=== PATIENT | male | born 1985 | race American Indian/Alaskan Native ===

== ENCOUNTER 2020-04-28 15:23 | Emergency (ER) | payer OTHER ==
[2020-04-28 16:10] LABS: Absolute Lymphocytes (CBC) 2.3 K/uL (0.7-4.9); Basophils % 0.8 % (0-1.3); Hematocrit 46.4 % (39.6-49.0); RBC Red Blood Cell Count 5.39 M/uL (4.33-5.43)
[2020-04-28 16:23] LABS: Potassium 3.6 mmol/L (3.5-5.1)
[2020-04-28 16:50] LABS: Urine Bacteria <20 /HPF (NONE SEEN); Urine Culture Reflex Order NOT NEEDED; Urine RBC 20-50 /HPF (NONE SEEN)
--- NOTE | 2020-04-28 17:16 | RAD REPORT ---
EXAM DESCRIPTION: CT - Abdomen Pelvis W Contrast - 04/28/2020 4:38 pm CLINICAL HISTORY: ABD PAIN, right-side, hematuria COMPARISON: No comparisons TECHNIQUE: Biphasic, helical CT imaging of the abdomen and pelvis was performed following 100 ml non -ionic IV contrast. No oral contrast. All CT scans are performed using dose optimization technique as appropriate and may include automated exposure control or mA/KV adjustment according to patient size. FINDINGS: No suspicious findings in the lung bases. Liver shows borderline fatty infiltration pattern. No focal liver lesion identified. Spleen and pancr eas show no suspicious findings. Gallbladder is tightly contracted precluding assessment. No biliary tree dilatation. Mild right-sided hydronephrosis is present without an obstructing calculus present. No nonobstructing calculi. Right renal function is delayed relative to the left. No focal area of diminished enhanceme nt. No pyelonephritis or solid mass of the renal parenchyma. No left-sided obstructing or nonobstruct ing calculi. No left-sided hydronephrosis. Urinary bladder is mostly contracted which limits assessme nt. No bladder wall thickening or mass. No adrenal abnormalities. No dilated bowel loops or bowel wall thickening. Appendix is normal. No free air, free fluid or infla mmatory stranding. No mass or bulky lymphadenopathy. A very small incidental fat only umbilical chilango ia present. No suspicious bony findings. IMPRESSION: Mild right-sided hydronephrosis and delayed right renal function without an obstructing calculus identified. No pyelonephritis or focal mass lesion of the right kidney. Right-sided dilatation could be secondary to a recently passed stone. Blood, mass or inflammatory mohinder ris in the ureter could give this pattern as well. Urinary bladder is too contracted to allow assessment. No bladder calculi seen.
--- NOTE | 2020-04-28 17:21 | EDPHYS ---
Physician Documentation [facility] Name: Diego Woodward Age: 34 yrs Sex: Male : 1985 Arrival Date: 04/28/2020 Time: 15:28 Bed 15 Private MD: ED Physician Kyle Booker HPI: 04/28 16:41 This 34 yrs old Other Male presents to ER via Ambulatory with complaints of Urinary kb Problem. 16:41 The patient presents with urinary symptoms, hematuria. Onset: The symptoms/episode kb began/occurred 4 day(s) ago. Modifying factors: The symptoms are alleviated by nothing, the symptoms are aggravated by nothing. Associated signs and symptoms: Pertinent positives: abdominal pain, hematuria, Pertinent negatives: constipation, diarrhea, dysuria, fever, nausea, vomiting. Severity of symptoms: At their worst the symptoms were moderate, in the emergency department the symptoms have improved. The patient has not experienced similar symptoms in the past. The patient has not recently seen a physician. Pt reports he started having RLQ pain 5 days ago. 3 days ago he had hematuria with clots. States the hematuria has resolved and the RLQ pain is decreased. 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 Denies fever.. Historical: - Allergies: 15:33 No Known Allergies; ll1 - PSHx: 15:33 None; ll1 - Immunization history:: Flu vaccine is not up to date. - Social history:: Smoking status: Patient reports the use of cigarette tobacco products, smokes one-half pack cigarettes per day, Patient/guardian denies using alcohol, street drugs. ROS: 16:40 Constitutional: Negative for fever, chills, and weight loss, Cardiovascular: Negative kb for chest pain, palpitations, and edema, Respiratory: Negative for shortness of breath, cough, wheezing, and pleuritic chest pain, Back: Negative for injury and pain, MS/Extremity: Negative for injury and deformity, Skin: Negative for injury, rash, and discoloration, Neuro: Negative for headache, weakness, numbness, tingling, and seizure. 16:40 Abdomen/GI: Positive for abdominal pain, Negative for nausea, vomiting, and diarrhea, constipation, abdominal cramps, abdominal distension, anorexia. 16:40 : Positive for hematuria. Exam: 16:40 Constitutional: This is a well developed, well nourished patient who is awake, alert, kb and in no acute distress. Head/Face: Normocephalic, atraumatic. Chest/axilla: Normal chest wall appearance and motion. Nontender with no deformity. No lesions are appreciated. Cardiovascular: Regular rate and rhythm with a normal S1 and S2. No gallops, murmurs, or rubs. Normal PMI, no JVD. No pulse deficits. Respiratory: Lungs have equal breath sounds bilaterally, clear to auscultation and percussion. No rales, rhonchi or wheezes noted. No increased work of breathing, no retractions or nasal flaring. Back: No spinal tenderness. No costovertebral tenderness. Full range of motion. Skin: Warm, dry with normal turgor. Normal color with no rashes, no lesions, and no evidence of cellulitis. MS/ Extremity: Pulses equal, no cyanosis. Neurovascular intact. Full, normal range of motion. Neuro: Awake and alert, GCS 15, oriented to person, place, time, and situation. Cranial nerves II-XII grossly intact. Motor strength 5/5 in all extremities. Sensory grossly intact. Cerebellar exam normal. Normal gait. 16:40 Abdomen/GI: Inspection: abdomen appears normal, Bowel sounds: normal, in all quadrants, Palpation: soft, in all quadrants, mild abdominal tenderness, in the right lower quadrant. Vital Signs: 15:31 BP 136 / 93; Pulse 92; Resp 18; Temp 99.3; Pulse Ox 100% ; Weight 112 kg; Pain 0/10; ll1 MDM: 15:34 Patient medically screened. [facility] [place] 16:41 Data reviewed: vital signs, nurses notes. Data interpreted: Pulse oximetry: on room air kb is 100 %. Interpretation: normal. 17:18 Counseling: I had a detailed discussion with the patient and/or guardian regarding: the kb historical points, exam findings, and any diagnostic results supporting the discharge/admit diagnosis, lab results, radiology results, the need for outpatient follow up, a urologist, to return to the emergency department if symptoms worsen or persist or if there are any questions or concerns that arise at home. 04/28 15:47 Order name: Urine Microscopic Only; Complete Time: 17:00 kb 04/28 15:51 Order name: Basic Metabolic Panel; Complete Time: 16:26 kb 04/28 15:47 Order name: Urine Dipstick-Ancillary (obtain specimen); Complete Time: 16:01 kb 04/28 15:51 Order name: CBC with Diff; Complete Time: 16:11 kb 04/28 15:51 Order name: CT Abd/Pelvis - IV Contrast Only; Complete Time: 17:18 kb 04/28 16:26 Order name: Urine Dipstick--Ancillary (enter results); Complete Time: 17:54 hb 04/28 15:51 Order name: IV Saline Lock; Complete Time: 16:05 kb 04/28 15:51 Order name: Labs collected and sent; Complete Time: 16:05 kb Administered Medications: No medications were administered Disposition: 04/28/20 17:20 Discharged to Home. Impression: Unspecified hydronephrosis, Hematuria. - Condition is Stable. - Discharge Instructions: Hematuria, Adult, Hydronephrosis. - Medication Reconciliation Form, Thank You Letter, Antibiotic Education, Prescription Opioid Use form. - Follow up: Emergency Department; When: As needed; Reason: Worsening of condition. Follow up: Private Physician; When: 2 - 3 days; Reason: Recheck today's complaints, Continuance of care, Re-evaluation by your physician. Addendum: 04/30/2020 10:48 Co-signature as Attending Physician, Kyle Booker MD I agree with the assessment and c mckeon plan of care. Signatures: Dispatcher [employer] EDWI Tianna Muse, WAITER/WAITRESS INFORMAL-C WAITER/WAITRESS INFORMAL-Ckb Kyle Booker MD MD cha Baxter, Heather, RN RN Ismael Lisa RN RN ll1 Corrections: (The following items were deleted from the chart) 04/28 17:21 17:20 04/28/2020 17:20 Discharged to Home. Impression: Unspecified hydronephrosis. kb Condition is Stable. Forms are Medication Reconciliation Form, Thank You Letter, Antibiotic Education, Prescription Opioid Use. Follow up: Emergency Department; When: As needed; Reason: Worsening of condition. Follow up: Private Physician; When: 2 - 3 days; Reason: Recheck today's complaints, Continuance of care, Re-evaluation by your physician. kb 18:16 17:21 04/28/2020 17:20 Discharged to Home. Impression: Unspecified hydronephrosis; hb Hematuria. Condition is Stable. Discharge Instructions: Hematuria, Adult, Hydronephrosis. Forms are Medication Reconciliation Form, Thank You Letter, Antibiotic Education, Prescription Opioid Use. Follow up: Emergency Department; When: As needed; Reason: Worsening of condition. Follow up: Private Physician; When: 2 - 3 days; Reason: Recheck today's complaints, Continuance of care, Re-evaluation by your physician. kb
--- NOTE | 2020-04-28 17:21 | ER ---
Nurse's Notes [facility] Name: Diego Woodward Age: 34 yrs Sex: Male : 1985 Arrival Date: 04/28/2020 Time: 15:28 Bed 15 Private MD: Diagnosis: Unspecified hydronephrosis;Hematuria Presentation: 04/28 15:31 Chief complaint: Patient states: Noticed blood in urine 3 days ago for 1 day. Reported ll1 right sided abdominal pain 4-5 days ago. No fever. Coronavirus screen: Client denies travel out of the [place] in the last 14 days. At this time, the client does not indicate any symptoms associated with coronavirus-19. Ebola Screen: Patient denies travel to an Ebola-affected area in the 21 days before illness onset. Initial Sepsis Screen: Does the patient meet any 2 criteria? No. Patient's initial sepsis screen is negative. Initial Sepsis Screen: Does the patient meet any 2 criteria? HR > 90 bpm. Risk Assessment: Do you want to hurt yourself or someone else? Patient reports no desire to harm self or others. Onset of symptoms was April 24, 2020. 15:31 Method Of Arrival: Ambulatory ll1 15:31 Acuity: ROIHT 3 ll1 Historical: - Allergies: 15:33 No Known Allergies; ll1 - PSHx: 15:33 None; ll1 - Immunization history:: Flu vaccine is not up to date. - Social history:: Smoking status: Patient reports the use of cigarette tobacco products, smokes one-half pack cigarettes per day, Patient/guardian denies using alcohol, street drugs. Screenin:30 Abuse screen: Denies threats or abuse. Nutritional screening: No deficits noted. Tuberculosis screening: No symptoms or risk factors identified. Fall Risk None identified. Assessment: 16:00 General: Appears in no apparent distress. Behavior is calm, cooperative. Pain: Complains of pain in right lower quadrant. Neuro: Level of Consciousness is awake, alert, Oriented to person, place, time, situation, Appropriate for age. Cardiovascular: Heart tones S1 S2 present Capillary refill < 3 seconds Patient's skin is warm and dry. Pulses are palpable in right radial artery and left radial artery. Respiratory: Airway is patent Breath sounds are clear bilaterally. GI: Bowel sounds present X 4 quads. Abd is soft and non tender X 4 quads. Derm: Skin is intact. 16:23 Reassessment: Pt to radiology via . Vital Signs: 15:31 BP 136 / 93; Pulse 92; Resp 18; Temp 99.3; Pulse Ox 100% ; Weight 112 kg; Pain 0/10; ll1 ED Course: 15:28 Patient arrived in ED. mr 15:30 Tianna Muse FNP-C is [facility]. kb 15:30 Kyle Booker MD is Attending Physician. kb 15:33 Triage completed. ll1 15:34 Arm band placed on Patient placed in an exam room, on a stretcher. ll1 15:38 Yesy Blair, RN is Primary Nurse. 15:55 Urine collected: clean catch specimen, clear, marisol colored. jp3 16:00 Initial lab(s) drawn, by ky, sent to lab. Inserted saline lock: 20 gauge in right jp3 antecubital area, using aseptic technique. Blood collected. 16:00 Patient maintains SpO2 saturation greater than 95% on room air. jp3 16:05 Placed in gown. Bed in low position. Call light in reach. Warm blanket given. Verbal jp3 reassurance given. Pulse ox on. NIBP on. 16:39 CT Abd/Pelvis - IV Contrast Only In Process Unspecified. EDMS Administered Medications: No medications were administered Outcome: 17:20 Discharge ordered by . kb 18:16 Patient left the ED. Signatures: Dispatcher [employer] EDMS Tianna Muse FNP-C FNP-Ckb Lida Vann Adwoa Coats RN RN Mitchel Wheeler jp3 Yesy Blair, RN RN Ismael Feldman RN RN 1
[2020-04-28 17:54] LABS: Urine Blood 2+ (NEG); Urine Glucose NEGATIVE (NEG); Urine Protein 1+ (NEG); Urine Specific Gravity 1.025 (1.005-1.030); Urine pH 5.5 (5.0-7.0)
[2020-04-28 18:24] VITALS: BP 136/93; TEMP 99.3; O2SAT 100
== END 2020-04-28 18:16 | disposition home or self-care (01) ==
LOC: ER 15:23
DX: N13.30 Unspecified hydronephrosis (principal); F17.210 Nicotine dependence, cigarettes, uncomplicated
CPT/HCPCS: 85025; 80048; 36415; 82565; 74177; 99284; Q9967; 81003; 81015